=== PATIENT | female | born 1950 | race Hispanic/Latino ===

== ENCOUNTER → 2019-03-26 | Outpatient (CLI) | payer OTHER, MEDICARE ==
[~2019-03-26] MED LIST: FENO145T PO; HYDR-4064 PO; LINA5TAB PO; METO25TA3 PO; ONDA4TAB9 PO; PANT40TA PO; PROM25TA7 PO; ZOLP5TAB8 PO
== END | disposition home or self-care (01) ==
LOC: RAH 11:10
PROVIDERS: ATTEND Family Medicine
DX: Z12.31 Encounter for screening mammogram for malignant neoplasm of breast (principal)
CPT/HCPCS: 77067

== ENCOUNTER → 2019-05-09 | Outpatient (CLI) | payer OTHER, MEDICARE ==
[~2019-05-09] MED LIST changes: +IOHEXOL-350 75 ML VIAL IV ONE
== END | disposition home or self-care (01) ==
LOC: RAH 09:15
PROVIDERS: ATTEND Family Medicine
DX: K80.20 Calculus of gallbladder without cholecystitis without obstruction (principal); N20.0 Calculus of kidney; K43.9 Ventral hernia without obstruction or gangrene; N28.89 Other specified disorders of kidney and ureter; Z85.9 Personal history of malignant neoplasm, unspecified
CPT/HCPCS: 74177; Q9967

== ENCOUNTER 2019-08-01 08:51 | Day surgery (SDC) | payer OTHER, MEDICARE ==
[~2019-08-01] VITALS: Ht 132.1 cm; Wt 59.9 kg
[~2019-08-01 08:51] MED LIST changes: -IOHEXOL-350 75 ML VIAL IV ONE; +ONDA-104 PO; -ONDA4TAB9 PO; +SODIUM CHLORIDE 0.9% 1000ML 1,000 ML IV ONE
[2019-08-01] MEDS ORDERED: PROPOFOL 10 MG/ML 20ML VIAL IV ONE (10:57)
[2019-08-01 11:02] VITALS: BP 150/76
[2019-08-01 11:25] VITALS: BP 113/50
[2019-08-01 11:30] VITALS: BP 116/42
[2019-08-01 11:35] VITALS: BP 123/44
[2019-08-01 11:40] VITALS: BP 138/55
== END 2019-08-01 11:52 | disposition home or self-care (01) ==
LOC: DAH 08:51
PROVIDERS: ATTEND Internal Medicine Gastroenterology
DX: K92.2 Gastrointestinal hemorrhage, unspecified (principal); D12.2 Benign neoplasm of ascending colon; D12.5 Benign neoplasm of sigmoid colon; E11.9 Type 2 diabetes mellitus without complications; E78.5 Hyperlipidemia, unspecified; I10 Essential (primary) hypertension; F41.9 Anxiety disorder, unspecified; F32.9 Major depressive disorder, single episode, unspecified; Z85.42 Personal history of malignant neoplasm of other parts of uterus; Z79.899 Other long term (current) drug therapy; Z90.710 Acquired absence of both cervix and uterus; Z90.49 Acquired absence of other specified parts of digestive tract; Z98.890 Other specified postprocedural states
CPT/HCPCS: 45380; 82948; 88305; 93005; A4215; A4221; A4222; A4223; A4606; A4615; A4663; J2704; J7030

== ENCOUNTER → 2019-10-30 | Outpatient (CLI) | payer OTHER, MEDICARE ==
[~2019-10-30] MED LIST changes: -SODIUM CHLORIDE 0.9% 1000ML 1,000 ML IV ONE
== END | disposition home or self-care (01) ==
LOC: OIH 10:16
PROVIDERS: ATTEND Family Medicine
DX: M77.31 Calcaneal spur, right foot (principal); M77.9 Enthesopathy, unspecified
CPT/HCPCS: 73610; 73650

== ENCOUNTER 2020-04-26 17:31 | Emergency (ER) | payer OTHER, MEDICARE ==
[2020-04-26 17:46] LABS: BASOPHILS % (AUTO) 0.1 % (0.0-5.0); HEMATOCRIT 34.8 % (36-48); MEAN CORPUSCULAR HEMOGLOBIN 30.5 pg (27.0-33.0); MEAN CORPUSCULAR HGB CONC 32.5 g/dL (32.0-36.0); MEAN CORPUSCULAR VOLUME 93.8 fL (79-99); MONOCYTES % (AUTO) 3.7 % (3.0-13.0); NEUTROPHILS % (AUTO) 84.6 % (40.0-77.0); PLATELET COUNT (AUTO) 142 K/uL (130-400); RED BLOOD CELL COUNT(AUTO) 3.71 MIL/uL (4.00-5.50); RED CELL DISTRIBUTION WIDTH 13.2 % (11.0-15.5); WHITE BLOOD COUNT (AUTO) 12.9 K/uL (4.8-10.8)
[2020-04-26 17:54] LABS: CREATININE 1.6 mg/dL (0.5-1.5); POTASSIUM 3.7 mmol/L (3.5-5.1)
[2020-04-26 17:59] LABS: ALBUMIN 2.9 g/dL (3.5-5.0); BILIRUBIN,TOTAL 0.5 mg/dL (0.2-1.0); INR 0.99 (0.85-1.15); PARTIAL THROMBOPLASTIN TIME 24.3 SEC (26.3-35.5); PROTHROMBIN TIME 10.7 SEC (9.6-11.6); TOTAL PROTEIN, SERUM 6.8 g/dL (6.0-8.3)
[2020-04-26] MEDS ORDERED: LIDOCAINE HCL 2% 20ML ONE (18:07)
[2020-04-26] MEDS ORDERED: LIDOCAINE HCL 1% 20 ML VIAL ONE (18:12)
== END 2020-04-26 20:00 | disposition home or self-care (01) ==
LOC: EDH 17:31
DX: S42.201A Unspecified fracture of upper end of right humerus, initial encounter for closed fracture (principal); W07.XXXA Fall from chair, initial encounter; Y93.89 Activity, other specified; Y92.89 Other specified places as the place of occurrence of the external cause; Y99.8 Other external cause status; S81.812A Laceration without foreign body, left lower leg, initial encounter; E11.9 Type 2 diabetes mellitus without complications; I10 Essential (primary) hypertension
CPT/HCPCS: 12035; 29105; 36415; 73020; 73590; 80053; 85025; 85610; 85730; 97597; 99284; J3490

== ENCOUNTER → 2022-01-11 | Outpatient (CLI) | payer OTHER, MEDICARE | END | disposition home or self-care (01) | LOC: RAH 11:18 | PROVIDERS: ATTEND Family Medicine | DX: Z12.31 Encounter for screening mammogram for malignant neoplasm of breast (principal) | CPT/HCPCS: 77067 ==

== ENCOUNTER 2023-02-07 18:52 | Emergency (ER) | payer OTHER, MEDICARE ==
[~2023-02-07] VITALS: Ht 154.9 cm; Wt 61.2 kg
[2023-02-07 19:24] LABS: BASOPHILS # (AUTO) 0.02 K/uL (0.00-0.20); BASOPHILS % (AUTO) 0.2 % (0.0-5.0); EOSINOPHILS # (AUTO) 0.19 K/uL (0.00-0.70); EOSINOPHILS % (AUTO) 1.7 % (0.0-8.0); HEMATOCRIT 34.4 % (36-48); IMMATURE GRANULOCYTE ABSOLUTE 0.05 K/uL (0-1); LYMPHOCYTES # (AUTO) 0.9 K/uL (1.0-4.8); LYMPHOCYTES % (AUTO) 7.9 % (21.0-51.0); MEAN CORPUSCULAR HEMOGLOBIN 31.8 pg (27.0-33.0); MEAN CORPUSCULAR HGB CONC 34.3 g/dL (32.0-36.0); MEAN CORPUSCULAR VOLUME 92.7 fL (79-99); MONOCYTES # (AUTO) 0.7 K/uL (0.1-1.0); MONOCYTES % (AUTO) 5.9 % (3.0-13.0); NEUTROPHILS # (AUTO) 9.5 K/uL (1.8-7.7); NEUTROPHILS % (AUTO) 83.9 % (40.0-77.0); PLATELET COUNT (AUTO) 102 K/uL (130-400); RED BLOOD CELL COUNT(AUTO) 3.71 MIL/uL (4.00-5.50); RED CELL DISTRIBUTION WIDTH 14.2 % (11.0-15.5); WHITE BLOOD COUNT (AUTO) 11.3 K/uL (4.8-10.8)
[2023-02-07] MEDS ORDERED: ONDANSETRON 4MG INJ IVP ONE (19:30)
[2023-02-07] MEDS ORDERED: 0.9%NACL 1000ML 1,000 ML IV ONE ×2 (19:30→20:30)
[2023-02-07 19:33] LABS: CREATININE 1.5 mg/dL (0.5-1.5); POTASSIUM 3.6 mmol/L (3.5-5.1)
[2023-02-07 19:38] LABS: BILIRUBIN,TOTAL 1.3 mg/dL (0.2-1.0); TOTAL PROTEIN, SERUM 6.3 g/dL (6.0-8.3)
[2023-02-07 20:00] LABS: SARS-CoV-2, RNA, NAAT NEGATIVE SARS CoV-2 (NEGATIVE)
[2023-02-07 20:07] LABS: INFLUENZA TYPE A Negative For Type A (NEGATIVE); INFLUENZA TYPE B Negative For Type B (NEGATIVE)
[2023-02-07] MEDS ORDERED: MORPHINE 2 MG SYG IVP ONE (20:30)
[2023-02-07] MEDS ORDERED: FAMOTIDINE 20MG VIAL IV ONE (20:30)
[2023-02-07] MEDS ORDERED: METR-172 PO (21:23)
[2023-02-07] MEDS ORDERED: ONDA4TAB10 PO (21:23)
[2023-02-07 22:58] VITALS: BP 122/70; PULSE 89; RESP 18; O2SAT 98
== END 2023-02-07 23:00 | disposition home or self-care (01) ==
LOC: EDH 18:52
DX: K52.9 Noninfective gastroenteritis and colitis, unspecified (principal); E11.9 Type 2 diabetes mellitus without complications; Z79.899 Other long term (current) drug therapy; Z20.822 Contact with and (suspected) exposure to COVID-19
CPT/HCPCS: 99284; 96374; 96361; 96375; 87635; 80053; 83690; 85025; 87804 ×2; 36415; 74018; C9803; J3490; J2270; J7030 ×2; J2405

== ENCOUNTER → 2023-06-15 | Outpatient (CLI) | payer OTHER, MEDICARE ==
[~2023-06-15] MED LIST changes: +METR-172 PO; +ONDA4TAB10 PO
== END | disposition home or self-care (01) ==
LOC: RAH 11:43
PROVIDERS: ATTEND Family Medicine
DX: Z12.31 Encounter for screening mammogram for malignant neoplasm of breast (principal)
CPT/HCPCS: 77067